=== PATIENT | female | born 1965 | race Caucasian/White ===

== ENCOUNTER 2021-01-18 00:33 | Emergency (ER) | payer OTHER ==
[~2021-01-18] VITALS: Ht 172.7 cm; Wt 72.0 kg
[2021-01-18 00:29] VITALS: BP 105/62
[2021-01-18 01:26] LABS: IMMATURE GRANULOCYTES 0.3 % (0.0-5.0); MEAN CELL VOLUME 96.5 fL CALC (80.0-100.0); MEAN CORPUSCULAR HGB 29.4 pG CALC (26.0-32.0); MEAN CORPUSCULAR HGB CONC 30.5 g/dL CAL (32.0-36.0); NEUT# 3.75 thou/uL (2.00-7.15); RED BLOOD COUNT 2.28 mill/uL (4.20-5.60); RED CELL DISTRI WIDTH 15.1 % (11.5-15.5)
[2021-01-18 01:32] LABS: ALBUMIN 2.4 g/dL (3.2-5.0); BILIRUBIN, TOTAL 0.2 mg/dL (0.0-1.4); CREATININE 3.7 mg/dL (0.5-1.0); MAGNESIUM 1.5 mg/dL (1.6-2.3); POTASSIUM 4.6 mmol/l (3.5-5.1); TOTAL PROTEIN 6.2 g/dL (6.3-8.2)
[2021-01-18 01:33] LABS: D-DIMER 2.53 mg/L (0.19-0.60)
[2021-01-18 01:34] LABS: HEMOGLOBIN 6.7 g/dl (12.0-16.0)
[2021-01-18] MEDS ORDERED: CITALOPRAM40 MG PO (01:37)
[2021-01-18 01:38] LABS: ACT PARTIAL THROMBO TIME 27.9 SECONDS (20.0-32.5); INTERNATIONAL NORMALIZED RATIO 0.9 RATIO (0.7-1.3); PROTHROMBIN TIME 9.7 SECONDS (9.0-12.5)
[2021-01-18] MEDS ORDERED: TRAZODONE100 MG PO (01:38)
[2021-01-18] MEDS ORDERED: OMEPRAZOLE20 MG PO (01:39)
[2021-01-18] MEDS ORDERED: HUMALOG100 MG/ML (01:39)
[2021-01-18] MEDS ORDERED: HYOSCYAMIN0.125 MG/1 PO (01:41)
[2021-01-18] MEDS ORDERED: LORAZEPAM0.5 MG PO (01:41)
[2021-01-18] MEDS ORDERED: GABAPENTIN300 M2 PO (01:44)
[2021-01-18] MEDS ORDERED: HYDROCO/APAP1 T10 PO (01:45)
[2021-01-18] MEDS ORDERED: LANTUS100 UNIT SC (01:46)
[2021-01-18 02:24] VITALS: BP 108/55
[2021-01-18 03:21] VITALS: BP 108/55
== END 2021-01-18 03:21 | disposition short-term general hospital (02) | DRG 177 ==
LOC: ED 00:33
PROC: 30233N1 Transfusion of Nonautologous Red Blood Cells into Peripheral Vein, Percutaneous Approach (ICD-10-PCS; principal; 2021-01-18)
DX: U07.1 COVID-19 (principal); J12.82 Pneumonia due to coronavirus disease 2019; I11.0 Hypertensive heart disease with heart failure; I50.9 Heart failure, unspecified; N19 Unspecified kidney failure; D64.9 Anemia, unspecified; E11.9 Type 2 diabetes mellitus without complications; J44.9 Chronic obstructive pulmonary disease, unspecified; I25.10 Atherosclerotic heart disease of native coronary artery without angina pectoris; F17.200 Nicotine dependence, unspecified, uncomplicated; Z86.73 Personal history of transient ischemic attack (TIA), and cerebral infarction without residual deficits; Z79.4 Long term (current) use of insulin
CPT/HCPCS: P9016